=== PATIENT | male | born 1985 | race Two or more races ===

== ENCOUNTER 2020-01-12 19:15 | Emergency (ER) | payer MEDICAID ==
[~2020-01-12] VITALS: Ht 165.1 cm; Wt 65.8 kg
--- NOTE | 2020-01-12 19:41 | NUR ---
ED Nurse Note: Walk-in patient with complaits of groin issue x four months. Patient also reports painful urination.
[2020-01-12 19:45] VITALS: BP 140/84
[2020-01-12 19:51] LABS: APPEARANCE,URINE CLEAR; BILIRUBIN, URINE NEGATIVE (NEGATIVE); COLOR,URINE PALE YELLOW; GLUCOSE, URINE (UA) NEGATIVE (NEGATIVE); KETONES,URINE NEGATIVE (NEGATIVE); LEUKOCYTE ESTERASE ,URINE NEGATIVE (NEGATIVE); NITRITE,URINE NEGATIVE (NEGATIVE); PH,URINE 6.5 (4.5-8.0); PROTEIN,URINE NEGATIVE (NEGATIVE); UROBILINOGEN,URINE NORMAL MG/DL (0.0-1.0)
[2020-01-12] MEDS ORDERED: Ketorolac 30mg Inj IM ONE (20:00)
--- NOTE | 2020-01-12 20:13 | NUR ---
ED Nurse Note: Patient escorted to bed 4 for assessment and evaluation by ER provider.
--- NOTE | 2020-01-12 20:51 | NUR ---
ED Nurse Note: US at bedside
[2020-01-12] MEDS ORDERED: Doxycycline Monohydrate 100mg ORAL ONE (21:15)
--- NOTE | 2020-01-12 21:39 | Diagnostic Imaging Report ---
EXAM: US Scrotum CLINICAL HISTORY: PAIN TECHNIQUE: Real-time ultrasound of the scrotum with color Doppler and image documentation. COMPARISON: No relevant prior studies available. FINDINGS: Right testicle: Right testicle 2.9 cm No torsion. Left testicle: Left testicle 3 cm No torsion. Epididymides: Bilateral epididymal enlargement and hyperemia likely represents bilateral epidermidis. Scrotum: Unremarkable. Other findings: Unremarkable testes. IMPRESSION: 1. Bilateral epididymal enlargement and hyperemia likely represents bilateral epidermidis. 2. Unremarkable testes.
--- NOTE | 2020-01-12 21:50 | Emergency Room Report ---
History of Present Illness General Chief Complaint: Male Urogenital Problems Source: Patient Present Illness HPI 34-year-old male with history of recurrences of epididymitis here complaining 4 months of intermittent right-sided scrotal pain and swelling and 2 days of dysuria as well as worsening and tender to touch at the right testicle. Reports that he is sexually active denies any penile discharge. Reports that he usually gets treated with doxycycline as he cannot tolerate Rocephin and azithromycin. Has not yet been seen by urologist. Denies any fever and chills, cough or congestion, nausea vomiting diarrhea. Rates the pain 3 out of 10 without radiation. Denies any hematuria. Denies any trauma to the area. Allergies: Coded Allergies: AZITHROMYCIN (Verified Allergy, Unknown, 01/12/20) CEFTRIAXONE (Verified Allergy, Unknown, 01/12/20) COVID-19 Screening Contact w/high risk pt: No Experienced COVID-19 symptoms?: No COVID-19 Testing performed SURGICAL FORCEPS FABRICATOR: No Patient History Past Medical History: see triage record Past Surgical History: none Pertinent Family History: none Immunizations: UTD Reviewed Nursing Documentation: PMH: Agreed; PSxH: Agreed Nursing Documentation-PMH Past Medical History: No Stated History Review of Systems All Other Systems: negative except mentioned in HPI Physical Exam Vital Signs Date Time Temp Pulse Resp B/P (MAP) Pulse Ox O2 Delivery O2 Flow Rate FiO2 01/12/20 19:15 98.2 102 18 140/84 (102) 99 Room Air Sp02 EP Interpretation: reviewed, normal General Appearance: no apparent distress, alert, GCS 15, non-toxic Head: normocephalic, atraumatic Eyes: bilateral eye normal inspection, bilateral eye PERRL ENT: hearing grossly normal, normal pharynx, no angioedema, normal voice Neck: full range of motion, supple/symm/no masses Respiratory: chest non-tender, lungs clear, normal breath sounds, no rhonchi, speaking full sentences Cardiovascular #1: regular rate, rhythm, no edema, no murmur Gastrointestinal: normal bowel sounds, non tender, soft, non-distended, no guarding, no rebound Rectal: deferred Genitourinary: no CVA tenderness Musculoskeletal: back normal, normal range of motion, gait/station normal, non- tender Neurologic: alert, motor strength/tone normal, oriented x3, sensory intact, responsive, speech normal Psychiatric: judgement/insight normal, memory normal, mood/affect normal, no suicidal/homicidal ideation Skin: no rash Lymphatic: no adenopathy Medical Decision Making PA Attestation ALL Diagnosis and treatment plan reviewed and discussed with my supervising physician Dr. Coto Diagnostic Impression: Primary Impression: Epididymitis ER Course 34-year-old male with history of recurrences of epididymitis here complaining 4 months of intermittent right-sided scrotal pain and swelling and 2 days of dysuria as well as worsening and tender to touch at the right testicle. Reports that he is sexually active denies any penile discharge. Reports that he usually gets treated with doxycycline as he cannot tolerate Rocephin and azithromycin. Has not yet been seen by urologist. Denies any fever and chills, cough or congestion, nausea vomiting diarrhea. Rates the pain 3 out of 10 without radiation. Denies any hematuria. Denies any trauma to the area. Ddx considered but are not limited to: Epididymitis, epididymal abscess, testicular torsion, varicocele, hydrocele, UTI, Vital signs: are WNL, pt. is afebrile H&PE are most consistent with: Epididymitis without abscess formation most likely secondary to STD ORDERS: UA, urine cx, scrotal ultrasound, doxycycline ED INTERVENTIONS: Doxycycline DISCHARGE: At this time pt. is stable for d/c to home. Will provide printed patient care instructions, and any necessary prescriptions. Care plan and follow up instructions have been discussed with the patient prior to discharge. Advised patient to follow-up with urologist, take medication as directed, if worsening symptoms return to emergency room CT/MRI/US Diagnostic Results CT/MRI/US Diagnostic Results : Imaging Test Ordered: Scrotal ultrasound Impression FINDINGS: Right testicle: Right testicle 2.9 cm No torsion. Left testicle: Left testicle 3 cm No torsion. Epididymides: Bilateral epididymal enlargement and hyperemia likely represents bilateral epidermidis. Scrotum: Unremarkable. Other findings: Unremarkable testes. IMPRESSION: 1. Bilateral epididymal enlargement and hyperemia likely represents bilateral epidermidis. 2. Unremarkable testes. Last Vital Signs Date Time Temp Pulse Resp B/P (MAP) Pulse Ox O2 Delivery O2 Flow Rate FiO2 01/12/20 19:45 98.2 87 18 140/84 99 Room Air Disposition: HOME, SELF-CARE Condition: Stable Scripts Doxycycline Hyclate (DOXYCYCLINE HYCLATE) 100 Mg Tablet 100 MG PO BID for 10 Days, #20 TAB Prov: Ayanna Gaspar 01/12/20 Referrals: [facility],REFERRING (PCP) Patient Instructions: Epididymitis Additional Instructions: Take medication as directed, follow primary care provider, if worsening symptoms return to the emergency room. Also referral to urologist. Ayanna Gaspar Jan 12, 2020 21:50
[2020-01-12] MEDS ORDERED: DOXYCYCLINE HY100 M6 PO (21:51)
[2020-01-12 22:00] VITALS: BP 132/78
--- NOTE | 2020-01-12 22:00 | NUR ---
ER DISCHARGE NOTE: Patient is cleared to be discharged per ERMD, pt is aox4, on room air, with stable vital signs. pt was given dc and prescription instructions, pt was able to verbalize understanding, pt id band removed. pt is able to ambulate with steady gait. pt took all belongings.
== END 2020-01-12 22:00 | disposition home or self-care (01) ==
LOC: EMR 21:42
DX: N45.1 Epididymitis (principal); Z88.1 Allergy status to other antibiotic agents
CPT/HCPCS: 76870; 81003; 96372; J1885; Z7502; 99284

== ENCOUNTER 2020-01-29 22:36 | Emergency (ER) | payer MEDICAID ==
[~2020-01-29] VITALS: Ht 175.3 cm; Wt 72.6 kg
[~2020-01-29 22:36] MED LIST: DOXYCYCLINE HY100 M6 PO
--- NOTE | 2020-01-29 22:50 | NUR ---
ED Nurse Note: Patient walked into ED c/o scrotum pain onset for about 3 hours now. patient changed into gown; attached to monitor. patient ao4. vitals stable. patient states he fell asleep with a cockring prior to onset of symptoms. rates pain 10/10. relieved by ejaculation. all safety measures met.
[2020-01-29 23:15] VITALS: BP 137/70
--- NOTE | 2020-01-29 23:15 | NUR ---
ED Nurse Note: iv access established. blood and urine collected; sent down to lab.
[2020-01-29] MEDS ORDERED: Morphine Sulfate 4mg/ml Inj (IV USE ONLY) ONE (23:19)
[2020-01-29 23:57] LABS: APPEARANCE,URINE CLEAR; BILIRUBIN, URINE NEGATIVE (NEGATIVE); COLOR,URINE PALE YELLOW; EOSINOPHILS % (AUTO) 0.8 % (0.0-3.0); GLUCOSE, URINE (UA) NEGATIVE (NEGATIVE); HEMATOCRIT 45.2 % (42.0-52.0); HEMOGLOBIN 16.2 G/DL (14.2-18.0); KETONES,URINE NEGATIVE (NEGATIVE); LEUKOCYTE ESTERASE ,URINE NEGATIVE (NEGATIVE); LYMPHOCYTES % (AUTO) 24.3 % (20.0-45.0); MEAN CORPUSCULAR VOLUME 83 FL (80-99); MONOCYTES % (AUTO) 5.7 % (1.0-10.0); NEUTROPHILS % (AUTO) 68.1 % (45.0-75.0); NITRITE,URINE NEGATIVE (NEGATIVE); PH,URINE 8 (4.5-8.0); PLATELET COUNT 312 K/UL (150-450); PROTEIN,URINE NEGATIVE (NEGATIVE); RED BLOOD COUNT 5.43 M/UL (4.70-6.10); RED CELL DISTRIBUTION WIDTH 11.2 % (11.6-14.8); UROBILINOGEN,URINE NORMAL MG/DL (0.0-1.0); WHITE BLOOD COUNT 7.5 K/UL (4.8-10.8)
[2020-01-30] MEDS ORDERED: Morphine Sulfate 4mg/ml Inj (IV USE ONLY) IVP ONE
--- NOTE | 2020-01-30 | NUR ---
ED Nurse Note: discussed plan of care with patient; aware of pending us. reports slight relief of pain post analgesic administration.
--- NOTE | 2020-01-30 00:59 | Emergency Room Report ---
History of Present Illness General Chief Complaint: Male Urogenital Problems Source: Patient Present Illness HPI Disclaimer: Please note that this report is being documented using [employer] technology. This can lead to erroneous entry secondary to incorrect interpretation by the dictating instrument. HPI: 34-year-old male no reported past medical history presents with bilateral testicular pain. This has been a chronic issue over the last few months. Patient states he initially wore a "cock ring" and fell asleep with his on. He woke up with edematous testicles and since that time he has had intermittent testicular pain that improves with ejaculation. He was seen here about 2 weeks ago had a testicular ultrasound concerning for bilateral epididymitis, he was treated with doxycycline p.o. and finished his treatment however he still had persistent pain and saw his primary care doctor yesterday and was started on levofloxacin. He denies any penile discharge. He does have a history of STDs. Allergies: Coded Allergies: AZITHROMYCIN (Verified Allergy, Unknown, 01/12/20) CEFTRIAXONE (Verified Allergy, Unknown, 01/12/20) COVID-19 Screening Contact w/high risk pt: No Experienced COVID-19 symptoms?: No COVID-19 Testing performed APPLICATIONS SYSTEMS ANALYST: No Patient History Reviewed Nursing Documentation: PMH: Agreed; PSxH: Agreed Nursing Documentation-PMH Past Medical History: No Stated History Review of Systems All Other Systems: negative except mentioned in HPI Physical Exam Vital Signs Date Time Temp Pulse Resp B/P (MAP) Pulse Ox O2 Delivery O2 Flow Rate FiO2 01/29/20 22:45 98.8 77 15 137/70 (92) 98 Room Air Sp02 EP Interpretation: reviewed, normal General Appearance: well appearing, no apparent distress Head: normocephalic, atraumatic Eyes: bilateral eye PERRL, bilateral eye EOMI ENT: hearing grossly normal, moist mucus membranes Neck: full range of motion, supple Respiratory: lungs clear, normal breath sounds, no rhonchi, no respiratory distress, no retraction, no wheezing Cardiovascular #1: normal peripheral pulses, regular rate, rhythm, no murmur Gastrointestinal: non tender, soft, non-distended, no guarding Genitourinary: other - Tenderness noted to bilateral testicles, no swelling, no penile discharge, no erythema Neurologic: alert, oriented x3, no focal defects Skin: normal color, warm/dry Medical Decision Making Diagnostic Impression: Primary Impression: Epididymitis ER Course MDM: Differential included STD epididymitis torsion to name a few Clinical course-pain control ordered, IV fluids ordered, ultrasound ordered. Ultrasound did demonstrate evidence of bilateral epididymitis. Patient was treated with doxycycline previously. Was not covered for gonorrhea. He initially reported allergy possibly to Rocephin or azithromycin I discussed this medication reaction he had in the past and he states he developed a genital rash after receiving medication but did not have any systemic symptoms. He was started on Levaquin yesterday. At this time I will give Rocephin in the ER and observe for any evidence of allergy. I will instruct patient to finish course of Levaquin as well. I did recommend continued outpatient follow-up with his primary doctor for reassessment and for referral to urology. He had no leukocytosis. He felt improved after IV fluids and pain control. Urinalysis was negative. Labs - Laboratory Tests Test 01/29/20 23:15 01/30/20 01:00 White Blood Count 7.5 K/UL (4.8-10.8) Red Blood Count 5.43 M/UL (4.70-6.10) Hemoglobin 16.2 G/DL (14.2-18.0) Hematocrit 45.2 % (42.0-52.0) Mean Corpuscular Volume 83 FL (80-99) Mean Corpuscular Hemoglobin 29.8 PG (27.0-31.0) Mean Corpuscular Hemoglobin Concent 35.8 G/DL (32.0-36.0) Red Cell Distribution Width 11.2 % (11.6-14.8) L Platelet Count 312 K/UL (150-450) Mean Platelet Volume 5.1 FL (6.5-10.1) L Neutrophils (%) (Auto) 68.1 % (45.0-75.0) Lymphocytes (%) (Auto) 24.3 % (20.0-45.0) Monocytes (%) (Auto) 5.7 % (1.0-10.0) Eosinophils (%) (Auto) 0.8 % (0.0-3.0) Basophils (%) (Auto) 1.0 % (0.0-2.0) Urine Color Pale yellow Urine Appearance Clear Urine pH 8 (4.5-8.0) Urine Specific [place] 1.010 (1.005-1.035) Urine Protein Negative (NEGATIVE) Urine Glucose (UA) Negative (NEGATIVE) Urine Ketones Negative (NEGATIVE) Urine Blood Negative (NEGATIVE) Urine Nitrite Negative (NEGATIVE) Urine Bilirubin Negative (NEGATIVE) Urine Urobilinogen Normal MG/DL (0.0-1.0) Urine Leukocyte Esterase Negative (NEGATIVE) Sodium Level 139 MMOL/L (136-145) Potassium Level 4.1 MMOL/L (3.5-5.1) Chloride Level 103 MMOL/L (98-107) Carbon Dioxide Level 11 MMOL/L (21-32) L Anion Gap 8 mmol/L (5-15) Blood Urea Nitrogen 11 mg/dL (7-18) Creatinine 1.4 MG/DL (0.55-1.30) H Estimated Glomerular Filtration Rate 58.7 mL/min (>60) Glucose Level 83 MG/DL (74-106) Calcium Level 8.9 MG/DL (8.5-10.1) Total Bilirubin 0.8 MG/DL (0.2-1.0) Aspartate Amino Transferase (AST) 104 U/L (15-37) H Alanine Aminotransferase (ALT) 126 U/L (12-78) H Alkaline Phosphatase 60 U/L (46-116) Total Protein 6.5 G/DL (6.4-8.2) Albumin 3.4 G/DL (3.4-5.0) Globulin 3.1 g/dL Albumin/Globulin Ratio 1.1 (1.0-2.7) Lipase 123 U/L (73-393) Chlamydia trachomatis RNA Pending Neisseria gonorrhoeae RNA Pending On reevaluation: Patient improved Plan-discharge, continue outpatient Levaquin, return precautions given Last Vital Signs Date Time Temp Pulse Resp B/P (MAP) Pulse Ox O2 Delivery O2 Flow Rate FiO2 01/29/20 22:45 98.8 77 15 137/70 (92) 98 Room Air Status: improved Disposition: HOME, SELF-CARE Condition: Improved Scripts Hydrocodone Bit/Acetaminophen 5-325* (NORCO 5-325 TABLET*) 1 Each Tablet 1 TAB ORAL Q6H PRN for Pain Scale (6-10), #10 TAB 0 Refills Prov: You Haddad M.D. 01/30/20 Ibuprofen* (MOTRIN*) 600 Mg Tablet 600 MG ORAL Q6H PRN for For Pain, #30 TAB 0 Refills Prov: You Haddad M.D. 01/30/20 Referrals: [facility],REFERRING (PCP) You Haddad M.D. Jan 30, 2020 01:00
[2020-01-30 01:04] LABS: POTASSIUM 4.1 MMOL/L (3.5-5.1)
[2020-01-30 01:05] LABS: CALCIUM 8.9 MG/DL (8.5-10.1); CREATININE 1.4 MG/DL (0.55-1.30)
[2020-01-30 01:06] LABS: ALBUMIN 3.4 G/DL (3.4-5.0); BILIRUBIN,TOTAL 0.8 MG/DL (0.2-1.0)
[2020-01-30 01:08] LABS: ALBUMIN/GLOBULIN RATIO 1.1 (1.0-2.7)
[2020-01-30 01:28] VITALS: BP 102/52
[2020-01-30] MEDS ORDERED: IBUPROFEN600 M1 ORAL (01:41)
[2020-01-30] MEDS ORDERED: NORCO 5-325 TA1 EAC1 ORAL (01:41)
[2020-01-30] MEDS ORDERED: Lidocaine 1% MPF 10mg/ml 5ml INJ ONE (01:45)
[2020-01-30 02:15] VITALS: BP 116/63
--- NOTE | 2020-01-30 02:15 | NUR ---
ER DISCHARGE NOTE: Patient is cleared to be discharged per ERMD, pt is aox4, on room air, with stable vital signs. pt was given dc and prescription instructions, pt was able to verbalize understanding, pt id band and iv site removed without complications. pt is able to ambulate with steady gait. pt took all belongings.
--- NOTE | 2020-01-30 02:49 | Diagnostic Imaging Report ---
EXAM: US Scrotum CLINICAL HISTORY: PAIN TECHNIQUE: Real-time ultrasound of the scrotum with color Doppler and image documentation. COMPARISON: No relevant prior studies available. FINDINGS: Right testicle: Right testicle measures 2.9 x 1.8 x 2.6 cm. No torsion. Left testicle: Left testicle measures 3.0 x 1.7 x 2.4 cm. No torsion. Epididymides: Right and left epididymis are enlarged, heterogeneous and hypervascular. Scrotum: Small hydroceles. IMPRESSION: 1. Findings suggesting epididymitis. 2. Small hydroceles.
== END 2020-01-30 02:15 | disposition home or self-care (01) ==
LOC: EMR 23:39
DX: N45.1 Epididymitis (principal); Z88.8 Allergy status to other drugs, medicaments and biological substances
CPT/HCPCS: 36415; 76870; 80053; 81003; 83690; 85025; 87491; 87590; 96361; 96372; 96374; J0696; J2270; J7030; Z7502; 99284

== ENCOUNTER 2020-04-07 21:19 | Emergency (ER) | payer MEDICAID ==
[~2020-04-07] VITALS: Ht 162.6 cm; Wt 64.9 kg
[~2020-04-07 21:19] MED LIST changes: +IBUPROFEN600 M1 ORAL; +NORCO 5-325 TA1 EAC1 ORAL
[2020-04-07 21:45] VITALS: BP 133/89
--- NOTE | 2020-04-07 21:45 | NUR ---
ED Nurse Note: Patient walked into ED c/o testictular pain onset for the past couple months, patient reports of using a cock ring prior months back and fell asleep, patient reports of having multiple visits to different emergency rooms and so far has found no relief, patient reports of not following up with urology yet but is scheduled to meet with one, patient rates his pain a 6/10. patient is alert and oriented x4, ambulatory with a steady gait however guards his testicles with pain. patient reports of having difficulty in urinating at times, reports dribbling however deneis any blood tinged penile discharge. will continue to monitor
[2020-04-07] MEDS ORDERED: Morphine Sulfate 4mg/ml Inj (IV USE ONLY) IVP ONE (22:00)
--- NOTE | 2020-04-07 22:00 | NUR ---
HAND-OFF: Report given to ZELDA Alegre.
--- NOTE | 2020-04-07 22:01 | NUR ---
ED Nurse Note: Recieved a pt A&Ox4, awake and verbal. Pt has no sob,cought or fever at the moment. pt is complaning of testictular pain and growing area onset for the past couple months, patient reports of using a cock ring prior months back and fell asleep.
--- NOTE | 2020-04-07 22:09 | Emergency Room Report ---
History of Present Illness General Chief Complaint: Pain Source: Patient Present Illness HPI Disclaimer: Please note that this report is being documented using [employer] technology. This can lead to erroneous entry secondary to incorrect interpretation by the dictating instrument. HPI: 34-year-old male presents for evaluation of testicular pain. He reports several months ago he fell asleep with a "cock ring" on causing consistent verbal constriction to his testicles for multiple hours. He seen at this emergency department and treated for epididymitis multiple times. His last treatment course included Levaquin. He has not yet followed up with urology but is scheduled to soon. Reports worsening pain in the right testicle radiating up into the suprapubic region. Reports nausea but no vomiting. Denies diarrhea. Denies penile discharge, bleeding, trauma since the initial constructing incident. Denies mucoid stools or pain with defecation. PMH: Reviewed PSH: Reviewed Allergies: Azithromycin, Social Hx: Reviewed Allergies: Coded Allergies: AZITHROMYCIN (Verified Allergy, Unknown, 01/12/20) CEFTRIAXONE (Verified Allergy, Unknown, 01/12/20) COVID-19 Screening Contact w/high risk pt: No Experienced COVID-19 symptoms?: No COVID-19 Testing performed BUSINESS ASST: Yes - february 2020 COVID-19 Screening: Negative COVID-19 COVID-19 Testing Source: [address] Nursing Documentation-PMH Past Medical History: No Stated History Review of Systems All Other Systems: negative except mentioned in HPI Physical Exam Vital Signs Date Time Temp Pulse Resp B/P (MAP) Pulse Ox O2 Delivery O2 Flow Rate FiO2 04/07/20 21:40 97.9 95 18 133/89 (104) 95 Room Air General: Awake and alert, no acute distress HEENT: NC/AT. EOMI. Resp: Normal work of breathing Abdomen: Soft, nontender, nondistended. : Testicles anatomic position. Right testicle is edematous and tender to palpation. No palpable abdominal wall defect or mass in the inguinal region or in the scrotum. No overlying skin breakdown, rash, vesicles or other findings. Skin: Intact. No abrasions, laceration or rash over the exposed skin MSK: Normal tone and bulk. Moving all extremities. No obvious deformity. Neuro: Awake and alert. Mentating appropriately Medical Decision Making Diagnostic Impression: Primary Impression: Epididymal thickening Additional Impression: Testicular pain ER Course Is a 34-year-old male presenting for evaluation testicular pain. Differential includes was not limited to orchitis, epididymitis, testicular torsion, testicular mass, hernia, referred pain from vascular or nerve damage. CT was obtained again showing bilateral epididymal thickening and increased flow consistent with epididymitis. The patient is been treated with multiple antibiotics several times at our hospital and [facility] as well. Believe this is a chronic issue and may not be related to acute infection however the patient requested a one-time dose of penicillin as he states syphilis is the one STD he has not yet been treated for. He denies rash, skin breakdown, inguinal swelling but reports high risk behavior. I do not believe the patient would require additional antibiotics and he at this time does not want antibiotics for treatment of epididymitis stating his been treated for multiple times with no changes in his condition. Patient has appointment with urology for further evaluation and ultimate treatment. Will refill his pain medication otherwise there is no evidence of acute torsion or mass or hernia. Will refer to outpatient urology. Instructed to return with new or worsening symptoms. Laboratory Tests Test 04/07/20 22:42 Urine Color Pale yellow Urine Appearance Clear Urine pH 7 (4.5-8.0) Urine Specific [place] 1.005 (1.005-1.035) Urine Protein 1+ (NEGATIVE) H Urine Glucose (UA) Negative (NEGATIVE) Urine Ketones Negative (NEGATIVE) Urine Blood 1+ (NEGATIVE) H Urine Nitrite Negative (NEGATIVE) Urine Bilirubin Negative (NEGATIVE) Urine Urobilinogen Normal MG/DL (0.0-1.0) Urine Leukocyte Esterase Negative (NEGATIVE) Urine RBC 5-10 /HPF (0 - 0) H Urine WBC 0 /HPF (0 - 0) Urine Squamous Epithelial Cells None /LPF (NONE/OCC) Urine Bacteria Few /HPF (NONE) Urine Mucus Few /LPF (NONE/OCC) H CT/MRI/US Diagnostic Results CT/MRI/US Diagnostic Results : Impression TECHNIQUE: Real-time ultrasound of the scrotum with color Doppler and image documentation. COMPARISON: None FINDINGS: Right testicle: The right testis measures 2.6 x 2.8 x 2.17 m. No torsion. Left testicle: The left testis measures 2.2 x 2.5 x 1.8 cm. No torsion. Epididymides: The epididymal regions are enlarged and heterogeneous in appearance. There is increased flow on color Doppler imaging. Scrotum: There is a small right hydrocele. Note is also made of a small scrotolith on the right. IMPRESSION: Bilateral epididymitis. Dictated By: Pauline Godinez M.D. Electronically Signed By:Pauline Godinez M.D. Signed Date/Time 04/07/207 Last Vital Signs Date Time Temp Pulse Resp B/P (MAP) Pulse Ox O2 Delivery O2 Flow Rate FiO2 04/07/20 21:40 97.9 95 18 133/89 (104) 95 Room Air Disposition: HOME, SELF-CARE Condition: Stable Scripts Hydrocodone Bit/Acetaminophen 5-325* (NORCO 5-325 TABLET*) 1 Each Tablet 1 TAB ORAL Q6H PRN for Pain Scale (6-10), #10 TAB 0 Refills Prov: Dipesh Adam MD 04/07/20 Ibuprofen* (MOTRIN*) 600 Mg Tablet 600 MG ORAL Q6H PRN for For Pain, #30 TAB 0 Refills Prov: Dipesh Adam MD 04/07/20 Dipesh Adam MD Apr 07, 2020 22:09
--- NOTE | 2020-04-07 22:45 | Diagnostic Imaging Report ---
EXAM: US Scrotum CLINICAL HISTORY: PAIN TECHNIQUE: Real-time ultrasound of the scrotum with color Doppler and image documentation. COMPARISON: None FINDINGS: Right testicle: The right testis measures 2.6 x 2.8 x 2.17 m. No torsion. Left testicle: The left testis measures 2.2 x 2.5 x 1.8 cm. No torsion. Epididymides: The epididymal regions are enlarged and heterogeneous in appearance. There is increased flow on color Doppler imaging. Scrotum: There is a small right hydrocele. Note is also made of a small scrotolith on the right. IMPRESSION: Bilateral epididymitis.
[2020-04-07] MEDS ORDERED: IBUPROFEN600 M1 ORAL (22:55)
[2020-04-07] MEDS ORDERED: NORCO 5-325 TA1 EAC1 ORAL (22:55)
[2020-04-07] MEDS ORDERED: Bicillin LA 1.2MMU/2ML SYR IM ONE (23:00)
[2020-04-07 23:05] LABS: APPEARANCE,URINE CLEAR; BILIRUBIN, URINE NEGATIVE (NEGATIVE); COLOR,URINE PALE YELLOW; GLUCOSE, URINE (UA) NEGATIVE (NEGATIVE); KETONES,URINE NEGATIVE (NEGATIVE); LEUKOCYTE ESTERASE ,URINE NEGATIVE (NEGATIVE); NITRITE,URINE NEGATIVE (NEGATIVE); PH,URINE 7 (4.5-8.0); PROTEIN,URINE 1+ (NEGATIVE); UROBILINOGEN,URINE NORMAL MG/DL (0.0-1.0)
[2020-04-07 23:20] VITALS: BP 133/89
--- NOTE | 2020-04-07 23:20 | NUR ---
ER DISCHARGE NOTE: Patient is cleared to be discharged per ERMD, pt is aox4, on room air, with stable vital signs. pt was given dc pt was able to verbalize understanding, pt id band emoved without complications. pt is able to ambulate with steady gait. pt took all belongings.
== END 2020-04-07 23:20 | disposition home or self-care (01) ==
LOC: EMR 21:55
DX: L85.9 Epidermal thickening, unspecified (principal); N50.811 Right testicular pain; Z88.1 Allergy status to other antibiotic agents
CPT/HCPCS: 76870; 81003; 96374; J0561; J2270; Z7502; 99284